=== PATIENT | male | born 1950 | race Caucasian/White ===

== ENCOUNTER 2017-01-29 06:45 | Day surgery (SDC) | payer OTHER ==
[2017-01-28 08:53] VITALS: BMI 45.9
[2017-01-29] MEDS ORDERED: BUPIVACAINE HCL/PF 0.5% (5MG/ML) 10 ML VIAL ONE (07:12)
[2017-01-29] MEDS ORDERED: LIDOCAINE 1%/EPI 1:100000 (50 ML MULTI DOSE VIAL) ONE (07:13)
[2017-01-29] MEDS ORDERED: PROPOFOL 20 ML ONE (07:41)
[2017-01-29] MEDS ORDERED: ONDANSETRON 4 MG/2 ML VIAL ONE (07:41)
[2017-01-29] MEDS ORDERED: DEXAMETHASONE SOD PHOSPHATE 4 MG/1 ML VIAL ONE (07:41)
[2017-01-29] MEDS ORDERED: LIDOCAINE HCL/PF 2% SDV 5ML VIAL ONE (07:41)
[2017-01-29] MEDS ORDERED: MIDAZOLAM HCL 2 MG/2 ML SINGLE DOSE VIAL ONE (07:41)
[2017-01-29] MEDS ORDERED: SUCCINYLCHOLINE CHLORIDE 200 MG/10 ML VIAL ONE (07:45)
--- NOTE | 2017-01-29 08:29 | HP ---
Satellite H - Chief Complaint Chief Complaint: right knee pain - Past Medical History Allergies/Adverse Reactions: Allergies Allergy/AdvReac Type Severity Reaction Status Date / Time eggs Allergy Uncoded 01/29/17 07:45 - Current Medications Current Medications: Home Medications Medication Instructions Recorded Lisinopril [Prinivil] 20 mg PO DAILY 01/28/17 Naproxen Sodium [Aleve] 220 mg PO BID 01/28/17 Triamterene/Hydrochlorothiazid 1 each PO DAILY 01/28/17 [Triamterene-Hctz 37.5-25 mg Cp] Oxycodone HCl/Acetaminophen 1 - 2 tab PO Q6H #30 tab MDD 8 01/29/17 [Percocet 5-325 mg Tablet -] Satellite Physical Exam - Physical Examination Vital Signs: Vital Signs Period Temp Pulse Resp BP Sys/Montiel Pulse Ox Last 24 Hr 98.0 F-98.0 F 86-86 20-20 120-120/79-79 96 General Appearance: Well Nourished, Well Developed, Alert & Oriented x3 ENT: Clear Lung: Normal air movement Heart: Regular rate & rhythm Extremities: Other (right knee- + swelling, + ttp, decr rom, + mcmurrays, nvi MRi + mt) Neurological: Intact, Alert, Oriented Satellite Impression/Plan - Impression/Plan Impression: right knee internal derangement Operative Procedure: right knee arthroscopy Date to be Performed: 01/29/17
[2017-01-29] MEDS ORDERED: KETOROLAC TROMETHAMINE 30 MG/1 ML VIAL ONE (08:39)
--- NOTE | 2017-01-29 08:50 | OP ---
Operative Note - Note: Operative Date: 01/29/17 ([facility]) Pre-Operative Diagnosis: right knee internal derangement Operation: right knee arthroscopy with PMM Post-Operative Diagnosis: Same as Pre-op Surgeon: Brandon Callaway Anesthesiologist/WELLNESS NURSE: Winston Burger Anesthesia: General, Local Specimens Removed: shavings Estimated Blood Loss (mls): 5 Operative Report Dictated: Yes
[2017-01-29 10:51] VITALS: TEMP 97.8
[2017-01-29] MEDS ORDERED: ACETAMINOPHEN 325 MG TABLET (FP) PO PRN (11:37)
[2017-01-29 12:46] VITALS: BP 150/70; PULSE 65
--- NOTE | 2017-02-01 13:33 | PATH ---
Surgical Pathology Report Patient Name: HERO FRNECH V. [facility]. Rec. #: [id number] /Age/Gender: 1950 (Age: 66) / M Account: [id number] Location: [facility] Taken: 01/29/2017 Received: 01/29/2017 Reported: 02/01/2017 Physicians: Brandon Callaway M.D. Specimen(s) Received RIGHT KNEE SHAVINGS Clinical History Right knee tear Final Diagnosis SOFT TISSUE, RIGHT KNEE, ARTHROSCOPIC SHAVINGS: SYNOVIUM AND FIBROCARTILAGE WITH MYXOHYALINE DEGENERATION. Electronically Signed Hany Martines M.D. Gross Description Received in formalin, labeled "right knee shavings" is a 3.8 x 3.8 x 0.4 cm aggregate of romero-yellow soft tissue fragments. A leasing representative portion is submitted in one cassette. /01/29/201701/29/2017
--- NOTE | 2017-02-02 17:43 | SPEC ---
DATE OF OPERATION: 01/29/2017 PREOPERATIVE DIAGNOSIS: Internal derangement, right knee. POSTOPERATIVE DIAGNOSIS: Internal derangement, right knee. PROCEDURE: Arthroscopy, right knee, partial medial meniscectomy. SURGICAL ATTENDING: Brandon Callaway MD ANESTHESIA: General with LMA. CLOSURE: 4-0 nylon. COMPLICATIONS: None. CONDITION: To recovery room in stable condition. DESCRIPTION OF OPERATIVE PROCEDURE: Patient was taken to the operating room on January 29, 2017. General anesthesia with LMA was administered by the anesthesiologist. Right lower extremity was prepped and draped in the usual sterile fashion. The medial and lateral infrapatellar portal sites were infiltrated with 1% Xylocaine with epinephrine. Both portals were then made with a 15 blade followed by blunt trocar. The scope trocar was placed into the lateral infrapatellar portal and up to the suprapatellar pouch. The knee was inflated with a cocktail of 10 mL of 1% Xylocaine and 10 mL 0.5% Marcaine and 20 mL of arthroscopic saline and was allowed to sit in the knee for a few minutes to allow the anesthetic to function intraarticularly. The scope was placed then through the trocar and up to the suprapatellar pouch. The pouch was visualized to be clean. The medial and lateral gutters were visualized to be clean. The undersurface of the patella and trochlea were visualized to be intact. With valgus stress on the knee, the medial compartment was entered. The medial meniscus was visualized and probed and found to have a complex tear of its posterior horn. This was debrided back to smooth and stable meniscal tissues using a meniscal biter and arthroscopic shaver. The medial femoral condyle was run and found to be intact, as was the medial tibial plateau. At 90 degrees the ACL was visualized and probed and was found to be intact. In the figure 4 position, the lateral compartment was entered. Lateral meniscus was visualized and probed, found to be intact. The lateral femoral condyle was run, found to be intact, as was the lateral tibial plateau. The knee was irrigated with copious amounts of irrigation, then drained of all of its fluid. The medial infrapatellar portal was closed using 4-0 nylon, then 20 mL of 0.5% Marcaine was infused through the scope trocar, inflating the knee with analgesic, then the trocar was removed. The lateral portal was then closed using 3-0 nylon suture. A sterile pressure dressing was placed over the knee. Patient was awakened from anesthesia and transferred to recovery room in stable condition. No complications. Estimated blood loss was negligible. Neha [id number]
== END 2017-01-29 12:15 | disposition home or self-care (01) ==
LOC: JASU-SURG 06:45
PROVIDERS: ATTEND Orthopaedic Surgery
PROC: 0SBC4ZZ Excision of Right Knee Joint, Percutaneous Endoscopic Approach (ICD-10-PCS; principal; 2017-01-29 08:00)
DX: S83.231A Complex tear of medial meniscus, current injury, right knee, initial encounter (principal); X58.XXXA Exposure to other specified factors, initial encounter; Y93.9 Activity, unspecified; Y92.9 Unspecified place or not applicable; Y99.9 Unspecified external cause status
CPT/HCPCS: 88304-TC; 94760

== ENCOUNTER 2017-03-28 11:13 | Emergency (ER) | payer OTHER ==
[2017-03-28 11:22] VITALS: BP 122/90; PULSE 92; TEMP 97.8; BMI 45.9
--- NOTE | 2017-03-28 12:36 | PDOC ---
History of Present Illness - General Chief Complaint: Pain, Acute Stated Complaint: INJURY Time Seen by Provider: 03/28/17 12:14 History Source: Patient Exam Limitations: No Limitations - History of Present Illness Initial Comments: 03/28/17 21:23 Chief complaint: Left knee pain since falling and twisting left knee yesterday History of present illness: Patient is a 66-year-old male history of HTN, here today complaining of pain when walking in his left knee his knee giving out when walking. Patient reports that he fell yesterday on wet leaves and twisted his left knee. Patient was able to get up and walk however pain is much worse with walking today and knee.. Patient denies hitting his head patient denies any other pain. Patient reports a history of having meniscus repair of her right knee approximately one month ago with Dr. Callaway. Patient is able to bend her right knee and foot and ankle without any pain currently. He reports that he heard a pop when he fell from left knee. 03/28/17 21:27 03/28/17 21:29 Occurred: reports: yesterday Severity: reports: moderate (with walking ) Pain Location: reports: lower extremity (left knee) Method of Injury: Yes: fall (yesterday twisting left knee ) Modifying Factors: improves with: None Loss of Consciousness: no loss of consciousness Associated Symptoms (Fall): denies symptoms, trouble walking (using a cane ) Past History - Past Medical History Allergies/Adverse Reactions: Allergies Allergy/AdvReac Type Severity Reaction Status Date / Time eggs Allergy Uncoded 03/28/17 11:20 Home Medications: Ambulatory Orders Lisinopril [Prinivil] 20 mg PO DAILY 01/28/17 Triamterene/Hydrochlorothiazid [Triamterene-Hctz 37.5-25 mg Cp] 1 each PO DAILY 01/28/17 Anemia: No Asthma: No Cancer: No Cardiac Disorders: No CVA: No COPD: No CHF: No Dementia: No Diabetes: No GI Disorders: No Disorders: No HTN: Yes Hypercholesterolemia: No Liver Disease: No Seizures: No Thyroid Disease: No Other medical history: denies - Surgical History Orthopedic Surgery: Yes - Suicide/Smoking/Psychosocial Hx Smoking History: Never smoked Have you smoked in the past 12 months: No Information on smoking cessation initiated: No Hx Alcohol Use: No Drug/Substance Use Hx: No Substance Use Type: None Review of Systems - Review of Systems Able to Perform ROS?: Yes Constitutional: No: Symptoms Reported HEENTM: No: Symptoms Reported Respiratory: No: Symptoms reported Cardiac (ROS): No: Symptoms Reported ABD/GI: No: Symptoms Reported : No: Symptoms Reported Musculoskeletal: Yes: Joint Pain (left knee with walking only ). No: Joint Swelling Integumentary: No: Symptoms Reported Neurological: No: Symptoms reported *Physical Exam - Vital Signs Last Vital Signs Temp Pulse Resp BP Pulse Ox 97.8 F 92 H 18 122/90 97 03/28/17 11:17 03/28/17 11:17 03/28/17 11:17 03/28/17 11:03/28/17 11:17 - Physical Exam General Appearance: Yes: Appropriately Dressed Vascular Pulses: Doralis-Pedis (L): 4+ Musculoskeletal: positive: Normal Inspection. negative: CVA Tenderness, CVA Tenderness (R), CVA Tenderness (L), Decreased Range of Motion Extremity: positive: Normal Capillary Refill, Normal Inspection (left knee ), Normal Range of Motion (left knee ), Other (negative anterior/posterior drawe, able to extend left knee without difficulty). negative: Tender, Swelling Integumentary: positive: Normal Color Neurologic: positive: Alert, Normal Response, Motor Strength 5/5 (4/5 left knee) , Respond to painful stimul (left leg), Responsive. negative: Numbness, Sensory Deficit (left leg ) Deep Tendon Reflexes: Ankle (L): 4+ (no induration ) Procedures - Consent Consent obtained: From Patient - Splinting Splint Location: Left: Knee Pre-Made Type: knee immobilizer Medical Decision Making - Medical Decision Making 03/28/17 21:25 Patient is a 66-year-old male history of [id number] diabetes, here today complaining of pain when walking in his left knee his knee giving out when walking. Patient reports that he fell yesterday on wet leaves and twisted his left knee. Patient was able to get up and walk however pain is much worse with walking today and knee.. Patient denies hitting his head patient denies any other pain. Patient reports a history of having meniscus repair of her right knee approximately one month ago with Dr. Callaway. Patient is able to bend her right knee and foot and ankle without any pain currently. Moca a pop left knee when he fell yesterday. Left knee pain rule out joint effusion or fracture Unstable left knee no effusion noted Plan: X-ray left knee no joint effusion noted no fracture Left knee immobilizer applied patient feels better with knee immobilizer on Will have patient elevate left leg as much as possible and apply ice every one to 2 hours while awake today and tomorrow Patient to take ibuprofen as needed as directed by assistant librarian for danilo 03/28/17 21:29 *DC/Admit/Observation/Transfer Diagnosis at time of Disposition: Unstable knee Qualifiers: Laterality: left Qualified Code(s): M25.362 - Other instability, left knee - Discharge Dispostion Disposition: HOME Condition at time of disposition: Stable - Referrals Referrals: Louis Rocha [Primary Care Provider] - Brandon Callaway MD [Staff Physician] - - Patient Instructions Additional Instructions: Elevate left leg as much as possible and apply ice every 1-2 hours for 15 minutes each time Wear a knee immobilizer during the day may take off at night Follow-up with your orthopedist Dr. Callaway tomorrow for further evaluation Continue to take ibuprofen as needed as directed previously Return to emergency room if symptoms worsen or new symptoms develop And patient voiced understanding of discharge instructions and all questions were answered - Post Discharge Activity
== END 2017-03-28 13:13 | disposition home or self-care (01) ==
LOC: JERFT 11:13
PROC: 2W3RXYZ Immobilization of Left Lower Leg using Other Device (ICD-10-PCS; principal; 2017-03-28)
DX: M25.362 Other instability, left knee (principal); W01.0XXA Fall on same level from slipping, tripping and stumbling without subsequent striking against object, initial encounter; Y93.01 Activity, walking, marching and hiking; Y92.89 Other specified places as the place of occurrence of the external cause; Y99.8 Other external cause status; I10 Essential (primary) hypertension
CPT/HCPCS: 29530; 73562-TC-LT; 99281-25